=== PATIENT | female | born 1945 | race Caucasian/White ===

== ENCOUNTER → 2022-12-16 | Outpatient (CLI) | payer MEDICARE ==
--- NOTE | 2022-12-17 08:33 | NM ---
EXAMINATION TYPE: NM DatScan Brain SPECT DATE OF EXAM: 12/16/2022 COMPARISON: NONE HISTORY: Tremor TECHNIQUE: 10 drops of Lugol's solution was administered 1 hour prior to injection as a thyroid bloc sirisha agent. After the administration of 4.6 mCi I-123 Ioflupane DaTscan. Images obtained [address] injection[address] SPECT images of the brain were acquired with axial and coronal reconstructions. FINDINGS: The axial SPECT images demonstrate increased background activity and reduced activity withi n the bilateral striata. Z score analysis was performed. IMPRESSION: Abnormal appearance highly suggestive of idiopathic Parkinson's disease or Parkinsonian s yndrome.
== END | disposition home or self-care (01) ==
LOC: RADNMMAIN 10:28
PROVIDERS: ATTEND Psychiatry & Neurology Neurology
DX: G25.0 Essential tremor (principal)
CPT/HCPCS: 78803; A9584